=== PATIENT | male | born 1960 | race Caucasian/White ===

== ENCOUNTER 2019-02-18 10:37 | Emergency (ER) | payer OTHER ==
[~2019-02-18] VITALS: Ht 180.3 cm; Wt 100.0 kg
[~2019-02-18 10:37] MED LIST: ACET325T33 PO; AMIO200T4 PO; ASPI-831 PO; ATOR20TA65 PO; CARV25TA79 PO; CLON-379 PO; DIGO250T PO; FURO20TA3 PO; GABA100C14 PO; HYDR-3672 PO; INSU100I33 SC; LISI40TA3 PO; NOVO3I SC; TAMS-14 PO
[2019-02-18 10:50] VITALS: Ht 180.3 cm; Wt 100.0 kg
[2019-02-18] MEDS ORDERED: LORAZEPAM 1 MG TAB PO ONE (12:30)
[2019-02-18] MEDS ORDERED: ONDANSETRON 4 MG INJ IV PRN (12:30)
[2019-02-18] MEDS ORDERED: ACETAMINOPHEN 325 MG TAB PO PRN (12:30)
[2019-02-18 12:57] VITALS: BP 144/80; PULSE 93; RESP 20
== END 2019-02-18 13:00 | disposition left against medical advice (07) ==
LOC: E/R 10:37 → CANBEDREQ 15:39
DX: R00.0 Tachycardia, unspecified (principal); I10 Essential (primary) hypertension; F17.210 Nicotine dependence, cigarettes, uncomplicated; E11.9 Type 2 diabetes mellitus without complications; Z79.4 Long term (current) use of insulin; Z79.82 Long term (current) use of aspirin
CPT/HCPCS: 36415; 71045; 80048; 84484; 85025; 93005; Z7502; Z7610